=== PATIENT | male | born 1950 | race Two or more races ===

== ENCOUNTER 2017-05-20 08:50 | Outpatient (CLI) | payer OTHER ==
[~2017-05-20] VITALS: Ht 167.6 cm; Wt 88.5 kg
[~2017-05-20 08:50] MED LIST: CIPRO500 MG PO; FLEXERIL10 MG PO; KETO10TA2 PO; NABUMETONE750 MG PO; URETRON D-S TAB1 TAB PO
== END 2017-05-20 09:10 | disposition home or self-care (01) ==
LOC: OFIC 805 08:50
DX: H61.23 Impacted cerumen, bilateral (principal)

== ENCOUNTER 2019-09-08 11:26 | Outpatient (CLI) | payer OTHER | END 2019-09-08 11:27 | disposition home or self-care (01) | LOC: RAD 11:26 | PROVIDERS: ATTEND Physical Medicine & Rehabilitation Sports Medicine | DX: M76.821 Posterior tibial tendinitis, right leg (principal) ==

== ENCOUNTER 2019-10-05 09:47 | Outpatient (CLI) | payer OTHER | END 2019-10-05 09:59 | disposition home or self-care (01) | LOC: SONOGRAMA 09:47 | PROVIDERS: ATTEND Physical Medicine & Rehabilitation Sports Medicine | DX: S86.111D Strain of other muscle(s) and tendon(s) of posterior muscle group at lower leg level, right leg, subsequent encounter (principal); M25.571 Pain in right ankle and joints of right foot ==

== ENCOUNTER 2023-10-21 07:30 | Outpatient (CLI) | payer OTHER | END 2023-10-21 07:35 | disposition home or self-care (01) | LOC: SONOGRAMA 07:30 | PROVIDERS: ATTEND Internal Medicine Cardiovascular Disease | DX: E11.9 Type 2 diabetes mellitus without complications (principal); R10.9 Unspecified abdominal pain; I10 Essential (primary) hypertension ==

== ENCOUNTER → 2024-03-18 08:36 | Outpatient (CLI) | payer OTHER | END | disposition home or self-care (01) | LOC: NUCLEAR 08:00 | PROVIDERS: ATTEND Internal Medicine Cardiovascular Disease | DX: I10 Essential (primary) hypertension (principal); R07.9 Chest pain, unspecified ==

== ENCOUNTER 2024-11-29 07:32 | Outpatient (CLI) | payer OTHER | END 2024-11-29 07:34 | disposition home or self-care (01) | LOC: MAMO-SONO 07:32 | PROVIDERS: ATTEND Internal Medicine Cardiovascular Disease | DX: N60.11 Diffuse cystic mastopathy of right breast (principal); N60.12 Diffuse cystic mastopathy of left breast; N62 Hypertrophy of breast; Z12.31 Encounter for screening mammogram for malignant neoplasm of breast ==